=== PATIENT | male | born 1995 | race American Indian/Alaskan Native ===

== ENCOUNTER 2021-04-19 14:17 | Emergency (ER) | payer OTHER ==
--- NOTE | 2021-04-19 15:23 | CR ---
Hand Comp Min 3V Rt CLINICAL HISTORY: Trauma FINDINGS: Patient has a displaced angulated fracture of the mid fourth metacarpal. There is some callus formation. Impression: Displaced fracture of the fourth metacarpal of uncertain chronology
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
== END 2021-04-19 15:59 ==
LOC: JP.ED 14:17
DX: S62.324A Displaced fracture of shaft of fourth metacarpal bone, right hand, initial encounter for closed fracture (principal); J45.909 Unspecified asthma, uncomplicated; W50.0XXA Accidental hit or strike by another person, initial encounter
CPT/HCPCS: 29125; 73130-26-RT; 73130-RT; 99282-25

== ENCOUNTER → 2021-05-03 | Day surgery (SDC) | payer MEDICAID ==
[~2021-05-03] MED LIST: Bupivacaine 0.5% 50 ML MDV ONE; Lactated Ringers 1,000 ML IV SCH; Lidocaine 0.5% 50 ML SDV ONE; Midazolam 1 MG/ML 2 ML SDV ONE; Nozin Nasal Sanitizer NASBOTH ONE; Propofol 200 MG/20 ML SDV ONE; ceFAZolin 1 GM in Premix Bag 1 BAG IV ONE; fentaNYL 100 MCG/2 ML SDV ONE; hydrOXYzine HCL 100 MG/2 ML SDV IM ONE; traMADol 50 MG Tab PO ONE
[2021-05-03 08:43] LABS: CORONAVIRUS COVID-19 NAA NEGATIVE (NEGATIVE)
[2021-05-03 13:32] VITALS: BP 127/82; PULSE 50
--- NOTE | 2021-05-03 14:11 | OR ---
DATE OF PROCEDURE: 05/03/2021 SURGEON: Michael Xiao MD PREOPERATIVE DIAGNOSIS: Displaced fracture, right 4th metacarpal shaft, with malunion. POSTOPERATIVE DIAGNOSIS: Displaced fracture, right 4th metacarpal shaft, with malunion. PROCEDURE: Takedown of nonunion and open reduction and internal fixation, right 4th metacarpal. RIVET HEATER GAS: ЕЛЕНА Drake ANESTHESIA: [place] block with sedation. INDICATIONS: Sean is a 25-year-old with a history of a displaced fracture of his right 4th metacarpal, which is at least 3 to 4 weeks' old. He also has evidence on x-ray of prior fracture with some callus formation. Distal fragment is dorsally displaced on the proximal fragment. He now presents for open reduction and internal fixation. Risks, benefits, potential complications were discussed. DESCRIPTION OF PROCEDURE: After adequate anesthesia was obtained, the patient placed supine. The right arm was prepped and draped in a sterile fashion. A longitudinal incision was made over the 4th metacarpal, carried down through the subcutaneous tissues. Hemostasis obtained with electrocautery and dorsal vein mobilized. Extensor tendons mobilized radially, exposing the displaced fracture. There was no motion at the fracture site and further exploration revealed malunion in this position. Using a combination of a Dufur elevator and a small rongeur, the nonunion was taken down. Bone ends were freshened and precontoured and the fracture was reduced. This was confirmed using C-arm fluoroscopy. A mini fragment 5-hole plate was secured to the dorsal aspect of the metacarpal using 2.7 cortical screws. Excellent purchase was obtained with all of the screws. Final position was confirmed with AP and lateral images. The wound was irrigated. Extensor tendons were allowed to fall back into position and the skin was closed with 2-0 Vicryl and a running 3-0 Monocryl. Steri-Strips were applied. Additional local anesthetic of 0.5% Marcaine was infiltrated into the skin and soft tissues. Sterile dressing was applied with an ulnar gutter splint with the fingers in functional position. He tolerated the procedure well. There were no complications. Taken from the operating room in stable condition. Note, lawn and garden technician was present with him the entire time preoperatively, throughout the procedure, and postoperatively. Michael Xiao MD /[id number]
== END ==
LOC: JP.SDS 07:31
PROVIDERS: ATTEND Specialist
DX: S62.324P Displaced fracture of shaft of fourth metacarpal bone, right hand, subsequent encounter for fracture with malunion (principal); J45.909 Unspecified asthma, uncomplicated; F17.200 Nicotine dependence, unspecified, uncomplicated; Z01.812 Encounter for preprocedural laboratory examination; Z20.822 Contact with and (suspected) exposure to COVID-19
CPT/HCPCS: 0241U; 36415; 80053; 85025; A9270-GY; C1713; C1776; J0690; J2250; J2704; J3010; J3410; J3490; J7120

== ENCOUNTER 2021-05-20 13:29 | Emergency (ER) | payer MEDICAID ==
[2021-05-20] MEDS ORDERED: Ketorolac 30 MG/ML SDV IM ONE (15:10)
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
--- NOTE | 2021-05-20 16:22 | CRLCT ---
For Patients: As a result of the Century Cures Act, medical imaging exams and procedure reports are released immediately into your electronic medical record. You may view this report before your referring provider. If you have questions, please contact your health care provider. CLINICAL HISTORY: Right-sided jaw pain. Right-sided jaw clicking. TECHNIQUE: CT of the face without contrast. Coronal and sagittal reformats were included. COMPARISON: None. FINDINGS: Dental structures: Multifocal periapical dental disease involving the right maxillary central/lateral incisors, the right 2nd maxillary bicuspid, the left maxillary canine and 1st bicuspid. Numerous dental caries. No subperiosteal/soft tissue abscess. Multiple sites of dental extraction. Osseous structures: No acute osseous abnormalities. The paranasal sinuses and mastoid air cells are clear. Soft tissues: Orbital contents within normal limits. Imaged intracranial structures within normal limits. No facial soft tissue abnormalities. Left tonsillar calcification. IMPRESSION: 1. Extensive dental disease including multifocal periapical dental disease and numerous dental caries. No subperiosteal/soft tissue abscess 2. No other significant abnormalities involving the visualized facial structures. Please note that all CT scans at this facility use dose modulation, iterative reconstruction, and/or weight-based dosing when appropriate to reduce radiation dose to as low as reasonably achievable. Dictated by Akshat Underwood MD @ 05/21/2021 9:02:21 AM (Electronically Signed)
== END 2021-05-20 17:00 ==
LOC: JP.ED 13:29
DX: R68.84 Jaw pain (principal); J45.909 Unspecified asthma, uncomplicated; Z72.0 Tobacco use
CPT/HCPCS: 70486; 96372; 99284; J1885